=== PATIENT | female | born 1980 | race Caucasian/White ===

== ENCOUNTER → 2020-08-21 | Outpatient (CLI) | payer OTHER ==
[~2020-08-21] MED LIST: CYANOCOBAL1000 MCG/1 INJ; DITROPAN 5 MG TA5 MG PO; DOCUSATE SODIU250 MG PO; HYDROCODONE-AC1 EAC1 PO; HYDROCODONE-AC1 EACH PO; IBUPROFEN600 MG PO; IBUPROFEN800 MG PO; NEURONTIN800 MG PO; NEXIUM20 MG PO; NORCO 5-325 TA1 EACH PO; PERCOCET 5/325 T1 EA PO; RILUTEK50 MG PO
[2020-08-21 09:18] LABS: HEMOGLOBIN 13.5 gm/dl (12.3-15.3); RED BLOOD COUNT 4.12 M/UL (4.00-5.10); WHITE BLOOD COUNT 14.1 K/UL (4.5-11.0)
== END ==
LOC: OPSV2 08:00
PROVIDERS: Obstetrics & Gynecology
DX: Z01.812 Encounter for preprocedural laboratory examination (principal); R10.2 Pelvic and perineal pain; Z88.5 Allergy status to narcotic agent
CPT/HCPCS: 36415; 81001; 85025

== ENCOUNTER 2020-08-23 07:12 | Day surgery (SDC) | payer OTHER ==
[~2020-08-23 07:12] MED LIST changes: -DITROPAN 5 MG TA5 MG PO; -DOCUSATE SODIU250 MG PO; -HYDROCODONE-AC1 EACH PO; -IBUPROFEN600 MG PO
[2020-08-23] MEDS ORDERED: DITROPAN 5 MG TA5 MG PO (09:40)
[2020-08-23] MEDS ORDERED: DOCUSATE SODIU250 MG PO (09:40)
[2020-08-23] MEDS ORDERED: HYDROCODONE-AC1 EACH PO (09:40)
[2020-08-23] MEDS ORDERED: IBUPROFEN600 MG PO (09:40)
== END 2020-08-23 22:03 | disposition home or self-care (01) ==
LOC: OR 07:12 → OB 12:25 → OR 22:03
DX: D25.9 Leiomyoma of uterus, unspecified (principal); N83.202 Unspecified ovarian cyst, left side; K21.9 Gastro-esophageal reflux disease without esophagitis; I10 Essential (primary) hypertension; J40 Bronchitis, not specified as acute or chronic; K44.9 Diaphragmatic hernia without obstruction or gangrene; M79.7 Fibromyalgia; M19.90 Unspecified osteoarthritis, unspecified site; Z82.49 Family history of ischemic heart disease and other diseases of the circulatory system; Z83.3 Family history of diabetes mellitus; Z88.6 Allergy status to analgesic agent; Z88.5 Allergy status to narcotic agent
CPT/HCPCS: 36415; 84703; J0690; J1100; J2001; J2250; J2270; J2405; J2550; J2704; J2710; J2765; J3010; J7120